=== PATIENT | male | born 1965 | race Caucasian/White ===

== ENCOUNTER → 2018-01-17 13:23 | Outpatient (CLI) | payer MEDICAID, SELFPAY ==
--- NOTE | 2018-01-17 13:25 | CA_ITS ---
PROCEDURE: 2-D M-mode and color Doppler study INDICATIONS FOR THE TEST: Chest pain+ COPD Heart Murmur Tobacco Smokingex Palpitations Fatigue Syncope Edema Hypertension+Diabetes Mellitus Rheumatic Fever SOB BOLIVAR Obesity Hyperlipidemia+ Family History HD Additional History mvp PATIENT INFORMATION HEIGHT: 68 WEIGHT: 148 GENDER: Male B/P: 170/90 2-D/M-MODE INTERPRETATION: 2-D MEASUREMENTS OBSERVED VALUES IN CMS Right Ventricular Dimension (RVDd) 1.9 Interventricular Septum (Thickness)(IVsd) 1.1 Left Ventricular Internal Dimensions(LVIDd) 4.4 Left Ventricular Posterior Wall (Thickness)(LVPWd) 0.9 Aortic Root 2.9 Aortic Cusp Separation 2.1 Left Atrial Dimensions (LAD) 3.8 2D 1. Left atrium is normal size, left ventricle is normal size, there is no concentric left ventricular hypertrophy, visually estimated ejection fraction 55% with no obvious regional wall motion abnormality. 2. The right atrium and right ventricle are normal size and contractility. 3. The aortic valve is minimally thickened and fibrosed. 4. The mitral valve leaflets are minimally thickened, there is no obvious mitral valve prolapse. 5. The tricuspid valve is structurally normal. 6. The pulmonic valve is poorly visualized. 7. No significant pericardial effusion noted. DOPPLER INTERROGATION: Doppler interrogation of the aortic, mitral and tricuspid valvular presence of mild mitral and tricuspid regurgitation, tricuspid regurgitant jet velocity is insufficient for calculation of the right ventricular systolic pressure, diastolic parameters are within normal range. CONCLUSION: 1. Normal left ventricular size, preserved left ventricular systolic function, visually estimated ejection fraction 55% with no obvious regional wall motion abnormality, diastolic parameters are within normal range. 2. Minimally thickened mitral valve leaflets, without any obvious mitral valve prolapse, there is mild mitral regurgitation. 3. No significant pericardial effusion noted.
== END ==
PROVIDERS: Family Provider Internal Medicine; PCP Internal Medicine; Visit Provider Internal Medicine
DX: I34.1 Nonrheumatic mitral (valve) prolapse (principal); R07.9 Chest pain, unspecified
CPT/HCPCS: 93306

== ENCOUNTER → 2018-02-07 08:54 | Outpatient (CLI) | payer MEDICAID, SELFPAY | PROVIDERS: Family Provider Internal Medicine; PCP Internal Medicine; Visit Provider Internal Medicine | DX: R07.89 Other chest pain (principal) | CPT/HCPCS: 93017 ==

== ENCOUNTER → 2019-01-02 15:31 | Outpatient (CLI) | payer MEDICAID, SELFPAY ==
--- NOTE | 2019-01-02 15:45 | XR_ITS ---
XR knee RT 3V HISTORY: ITS.REASON: RT KNEE PAIN ORDERING PHYSICIAN: Abhijit Hoffman PATIENT AGE: 53 years COMPARISON: 04/14/2011 FINDINGS: No fracture or dislocation. No lytic or blastic change. Normal mineralization. There is slight decrease in the joint space medially with minimal osteophyte formation along the proximal tibia medially and minimal osteophyte formation along the posterior patella. 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
== END ==
PROVIDERS: PCP Internal Medicine; Visit Provider Internal Medicine
DX: M25.561 Pain in right knee (principal)
CPT/HCPCS: 73562

== ENCOUNTER → 2020-10-07 13:51 | Outpatient (CLI) | payer OTHER, SELFPAY ==
[2020-10-09 13:21] LABS: Covid-19 Nasal PCR Sendout Lex NOT DETECTED
== END ==
PROVIDERS: PCP Internal Medicine; Visit Provider Internal Medicine
DX: Z03.818 Encounter for observation for suspected exposure to other biological agents ruled out (principal)
CPT/HCPCS: U0004

== ENCOUNTER → 2020-11-03 14:47 | Outpatient (CLI) | payer OTHER, SELFPAY ==
--- NOTE | 2020-11-03 | ECG_ITS ---
APPROVED REPORT Exam: Resting ECG HR:62 bpm ECG Measurements Heart Rate 62 AXES TN 152 P 57 QRSd 100 QRS 27 QT 406 T 7 QTc 412 Conclusion Normal sinus rhythm Normal ECG Electronically signed by : Abhijit Hoffman, 11/03/2020 15:49:34
--- NOTE | 2020-11-03 15:01 | XR_ITS ---
PROCEDURE: XR SHOULDER LT MIN 2V Referring Doctor: Abhijit Hoffman Patient Age:55Y CLINICAL INDICATION: LT SHOULDER PAIN COMPARISON: CR CXR CHEST(2 VIEWS-NOT PORTABLE) from 08/02/2016 FINDINGS: Three views the left shoulder, AP internal and external rotation along with Y-view No acute fracture or dislocation. Glenohumeral joint is intact. Humeral head and neck intact. Scapula intact. Upper left ribs intact AC joint intact with only scant degenerative changes here. Minor inferior spurring at AC joint. Bones well mineralized. With satisfactory relationships IMPRESSION: No acute findings. Left shoulder intact. . Normal glenohumeral joint. Only suggestion minor scant degenerative changes AC joint Dictated by: Jonn Bhatti MD 11/03/2020 15:22 Jonn Bhatti MD in [facility] 11/03/2020 15:22
--- NOTE | 2020-11-03 15:01 | XR_ITS ---
PROCEDURE: XR CHEST 2V Referring Doctor: Abhijit Hoffman Patient Age:55Y CLINICAL HISTORY: CHEST PAIN but current right-sided chest pain. Hyperlipidemia Also note left Shoulder pain 2 years since basketball injury COMPARISON: CR CXR1 CHEST-PORTABLE from 01/08/2016 CR CXR CHEST(2 VIEWS-NOT PORTABLE) from 08/02/2016 FINDINGS: PA and lateral chest performed today and compared to 08/02/2016 CXR The lungs are clear nothing definitely acute. No significant change since 08/02/2016 . the the cardiomediastinal silhouette and pulmonary vascularity are within normal limits. The lungs are clear without infiltrates, suspicious nodules, or pleural effusions. No acute bony abnormalities. IMPRESSION: Stable chest with no acute findings. No significant change since 2015 CXR Dictated by: Jonn Bhatti MD 11/03/2020 15:24 Jonn Bhatti MD in [facility] 11/03/2020 15:24
[2020-11-03 15:29] LABS: Chloride 101 mmol/L (98-107)
[2020-11-03 15:30] LABS: Potassium 4.6 mmoL/L (3.5-5.1); Sodium 141 mmol/L (136-145)
[2020-11-03 15:32] LABS: Alanine Aminotransferase 18 U/L (12-78); Alkaline Phosphatase 74 U/L (38-126); Anion Gap 12.6 mEq/L (5-15); Aspartate Amino Transferase 30 U/L (17-59); Bilirubin,Total 1.2 mg/dl (0.2-1.3); Blood Urea Nitrogen 13 mg/dl (9-20); Carbon Dioxide 32 mmol/L (22.0-30.0); Cholesterol 156 mg/dl (140-200); Estimated Glomerular Filt Rate 87 ml/min (>60); GFR (African American) 105 ML/MIN (>60); Triglycerides 108 mg/dl (30-150); VLDL Cholesterol 22 mg/dL (0-40)
[2020-11-03 15:33] LABS: Albumin Level 4.8 g/dl (3.5-5.0); Albumin/Globulin Ratio 1.3 (1.1-1.8); Calcium 10.2 mg/dl (8.4-10.2); Chol/HDL Ratio 2.8 (1-3.5); Globulin 3.7 g/dL (1.3-3.2); Glucose 149 mg/dl (74-100); HDL Cholesterol 56 mg/dl (40-60); Total Protein,Serum 8.5 g/dl (6.3-8.2)
[2020-11-03 15:48] LABS: Troponin I < 0.01 ng/ml (0.00-0.034)
[2020-11-03 15:50] LABS: Direct LDL Cholesterol 63.98 mg/dL (100-129)
== END ==
PROVIDERS: Visit Provider Internal Medicine
DX: R07.89 Other chest pain (principal); M25.512 Pain in left shoulder; E78.5 Hyperlipidemia, unspecified
CPT/HCPCS: 36415; 71046; 73030; 80053; 80061; 84484; 93005

== ENCOUNTER → 2021-02-15 14:30 | Outpatient (CLI) | payer OTHER, SELFPAY ==
--- NOTE | 2021-02-15 14:33 | CT_ITS ---
PROCEDURE: CT ABDOMEN PELVIS WO CON CLINICAL INDICATION: HEMATURIA COMPARISON: No exams were available for comparison TECHNIQUE: Axial images obtained with sagittal and coronal reformats. All CT scans at the facility use one or more dose reduction, viz: automated exposure control, ma/kV adjustment per patient size (including targeted exams where dose is matched to indication, i.e. head), or iterative reconstruction technique. FINDINGS: LOWER THORAX: No acute finding ABDOMEN & PELVIS: The liver, gallbladder, spleen, adrenal glands, and pancreas have an unremarkable unenhanced appearance. No renal or ureteral calculi. No hydronephrosis. Unremarkable appendix. There is a mild amount of retained colonic feces. No intestinal obstruction or free air. The urinary bladder has an unremarkable unenhanced appearance. There are few scattered small lymph nodes within the abdomen and retroperitoneum. No acute bony findings. IMPRESSION: No acute finding No renal or ureteral calculi or hydronephrosis Dictated by: Javier Ludwig MD 02/15/2021 16:16 Javier Ludwig MD in [facility] 02/15/2021 16:16
== END ==
PROVIDERS: PCP Internal Medicine; Visit Provider Internal Medicine
DX: R31.0 Gross hematuria (principal)
CPT/HCPCS: 74176

== ENCOUNTER → 2021-11-01 15:22 | Outpatient (CLI) | payer OTHER, SELFPAY | PROVIDERS: PCP Internal Medicine; Visit Provider Internal Medicine | DX: U07.1 COVID-19 (principal) | CPT/HCPCS: C9803; U0003; U0005 ==

== ENCOUNTER 2021-11-04 08:01 | Outpatient (CLI) | payer OTHER, SELFPAY ==
[2021-11-04] VITALS (9 sets, daily range): BP systolic 136–178; BP diastolic 76–94; PULSE 42–56; RESP 18; TEMP 36.3; O2SAT 99–100
--- NOTE | 2021-11-04 12:40 | PC.NURSE ---
HAD LONG DISCUSSION WITH PT ABOUT HR. PT SAYS HE DID TAKE A WHOLE MOTOPROLOL THIS AM INSTEAD OF HALF PER DR ABBOTT [employer]. INSTRUCTED TO FOLLOW UP WIT DR ABBOTT AND TO COME TO ER IF DIZZINESS, FAINTING OR CP OCCURS. VERBALIZED UNDERSTANDING.
== END 2021-11-04 12:42 | disposition home or self-care (01) ==
LOC: COVID.OUT 08:01
PROVIDERS: PCP Internal Medicine; Visit Provider Internal Medicine
DX: U07.1 COVID-19 (principal); Z23 Encounter for immunization
CPT/HCPCS: 96365

== ENCOUNTER → 2022-01-25 17:04 | Outpatient (CLI) | payer OTHER, SELFPAY | PROVIDERS: Visit Provider Internal Medicine | DX: K61.0 Anal abscess (principal); B95.8 Unspecified staphylococcus as the cause of diseases classified elsewhere | CPT/HCPCS: 87070; 87077; 87186; 87205 ==

== ENCOUNTER → 2022-02-25 17:20 | Outpatient (CLI) | payer OTHER, SELFPAY ==
[2022-02-25 19:14] LABS: Basophils # 0.1 K/mm3 (0-0.2); Basophils % 1.2 % (0.1-2.0); Eosinophils # 0.6 K/mm3 (0.0-0.4); Eosinophils % 7.8 % (0.1-12.0); Hematocrit 41.7 % (42.0-52.0); Hemoglobin 14.1 g/dL (14.1-18.0); Lymphocytes # 2.8 K/mm3 (0.7-4.5); Lymphocytes % 38.6 % (10-50); Mean Corpuscular HGB Conc 33.8 g/dL (31.8-35.4); Mean Corpuscular Hemoglobin 32.8 pg (27.0-31.2); Mean Corpuscular Volume 97.1 fl (80-94); Monocytes # 0.4 K/mm3 (0.1-1.0); Neutrophils # 3.4 K/mm3 (1.8-7.8); Neutrophils % 47.4 % (37.0-80.0); Platelet Count 234 K/mm3 (142-424); Red Blood Count 4.29 M/mm3 (4.60-6.20); Red Cell Distribution Width 14.3 % (11.5-17.5); White Blood Count 7.1 K/mm3 (4.8-10.8)
[2022-02-25 19:42] LABS: Chloride 105 mmol/L (98-107)
[2022-02-25 19:43] LABS: Potassium 3.9 mmoL/L (3.5-5.1); Sodium 141 mmol/L (136-145)
[2022-02-25 19:45] LABS: Alanine Aminotransferase 31 U/L (12-78); Alkaline Phosphatase 95 U/L (38-126); Anion Gap 11.9 mEq/L (5-15); Aspartate Amino Transferase 36 U/L (17-59); Bilirubin,Total 0.7 mg/dl (0.2-1.3); Blood Urea Nitrogen 9 mg/dl (9-20); Carbon Dioxide 28 mmol/L (22.0-30.0); Estimated Glomerular Filt Rate 99 ml/min (>60); GFR (African American) 120 ML/MIN (>60)
[2022-02-25 19:46] LABS: Albumin Level 4.2 g/dl (3.5-5.0); Albumin/Globulin Ratio 1.4 (1.1-1.8); Calcium 8.7 mg/dl (8.4-10.2); Cholesterol 133 mg/dl (140-200); Globulin 2.9 g/dL (1.3-3.2); Glucose 78 mg/dl (74-100); HDL Cholesterol 44 mg/dl (40-60); Total Protein,Serum 7.1 g/dl (6.3-8.2); Triglycerides 142 mg/dl (30-150); VLDL Cholesterol 28 mg/dL (0-40)
[2022-02-25 19:57] LABS: Direct LDL Cholesterol 71.68 mg/dL (100-129)
[2022-02-25 20:58] LABS: Prostate Specific Ag Screen 0.3 ng/ml (0.0-4.0)
== END ==
PROVIDERS: PCP Internal Medicine; Visit Provider Internal Medicine
DX: R10.13 Epigastric pain (principal); E03.9 Hypothyroidism, unspecified; E78.5 Hyperlipidemia, unspecified; K21.9 Gastro-esophageal reflux disease without esophagitis; F41.9 Anxiety disorder, unspecified; F33.1 Major depressive disorder, recurrent, moderate; J45.909 Unspecified asthma, uncomplicated
CPT/HCPCS: 80053; 80061; 84443; 85025; G0103

== ENCOUNTER → 2022-06-08 13:08 | Outpatient (CLI) | payer OTHER, SELFPAY ==
[2022-06-08 14:28] LABS: Thyroid Stimulating Hormone 4.32 uIU/mL (0.465-4.68)
== END ==
PROVIDERS: PCP Internal Medicine; Visit Provider Internal Medicine
DX: E03.9 Hypothyroidism, unspecified (principal)
CPT/HCPCS: 84443

== ENCOUNTER → 2022-12-30 12:31 | Outpatient (CLI) | payer OTHER, SELFPAY ==
[2022-12-30 13:30] LABS: Basophils # 0.1 K/mm3 (0-0.2); Basophils % 1.3 % (0.1-2.0); Eosinophils # 0.7 K/mm3 (0.0-0.4); Eosinophils % 7.1 % (0.1-12.0); Hematocrit 42.4 % (42.0-52.0); Hemoglobin 13.4 g/dL (14.1-18.0); Lymphocytes # 4.1 K/mm3 (0.7-4.5); Lymphocytes % 42.7 % (10-50); Mean Corpuscular HGB Conc 31.7 g/dL (31.8-35.4); Mean Corpuscular Hemoglobin 31.8 pg (27.0-31.2); Mean Corpuscular Volume 100.3 fl (80-94); Mean Platelet Volume 8.4 fl (7.4-10.4); Monocytes # 0.5 K/mm3 (0.1-1.0); Monocytes % 5.1 % (1.7-9.3); Neutrophils # 4.2 K/mm3 (1.8-7.8); Neutrophils % 43.8 % (37.0-80.0); Platelet Count 267 K/mm3 (142-424); Red Blood Count 4.23 M/mm3 (4.60-6.20); Red Cell Distribution Width 13.3 % (11.5-17.5); White Blood Count 9.6 K/mm3 (4.8-10.8)
[2022-12-30 14:18] LABS: Alanine Aminotransferase 17 U/L (12-78); Albumin Level 4.7 g/dl (3.5-5.0); Albumin/Globulin Ratio 1.4 (1.1-1.8); Alkaline Phosphatase 98 U/L (38-126); Anion Gap 7.4 mEq/L (5-15); Aspartate Amino Transferase 28 U/L (17-59); Bilirubin,Total 0.8 mg/dl (0.2-1.3); Blood Urea Nitrogen 17 mg/dl (9-20); Calcium 9.3 mg/dl (8.4-10.2); Carbon Dioxide 33 mmol/L (22.0-30.0); Chloride 104 mmol/L (98-107); Chol/HDL Ratio 3.5 (1-3.5); Cholesterol 154 mg/dl (140-200); Estimated Glomerular Filt Rate 69 ml/min (>60); GFR (African American) 83 ML/MIN (>60); Globulin 3.4 g/dL (1.3-3.2); Glucose 83 mg/dl (74-100); HDL Cholesterol 44 mg/dl (40-60); Potassium 4.4 mmoL/L (3.5-5.1); Sodium 140 mmol/L (136-145); Total Protein,Serum 8.1 g/dl (6.3-8.2); Triglycerides 218 mg/dl (30-150); VLDL Cholesterol 44 mg/dL (0-40)
[2022-12-30 14:29] LABS: Direct LDL Cholesterol 73.55 mg/dL (100-129)
[2022-12-30 14:49] LABS: Prostate Specific Ag Screen 0.3 ng/ml (0.0-4.0); Thyroid Stimulating Hormone 8.82 uIU/mL (0.465-4.68)
== END ==
PROVIDERS: PCP Internal Medicine; Visit Provider Internal Medicine
DX: I10 Essential (primary) hypertension (principal); E78.5 Hyperlipidemia, unspecified; E03.9 Hypothyroidism, unspecified; F33.1 Major depressive disorder, recurrent, moderate; Z12.5 Encounter for screening for malignant neoplasm of prostate
CPT/HCPCS: 80053; 80061; 84443; 85025; G0103

== ENCOUNTER → 2023-03-08 11:45 | Outpatient (CLI) | payer OTHER, SELFPAY | PROVIDERS: PCP Internal Medicine; Visit Provider Internal Medicine | DX: I10 Essential (primary) hypertension (principal); E03.9 Hypothyroidism, unspecified; E78.5 Hyperlipidemia, unspecified; F41.9 Anxiety disorder, unspecified | CPT/HCPCS: 84443 ==

== ENCOUNTER → 2023-06-21 16:41 | Outpatient (CLI) | payer OTHER, SELFPAY ==
[2023-06-21 18:12] LABS: Thyroid Stimulating Hormone 0.58 uIU/mL (0.465-4.68)
== END ==
PROVIDERS: PCP Internal Medicine; Visit Provider Internal Medicine
DX: F41.9 Anxiety disorder, unspecified (principal); F33.1 Major depressive disorder, recurrent, moderate; I10 Essential (primary) hypertension; E03.9 Hypothyroidism, unspecified; E78.5 Hyperlipidemia, unspecified; K21.9 Gastro-esophageal reflux disease without esophagitis; J45.909 Unspecified asthma, uncomplicated
CPT/HCPCS: 84443

== ENCOUNTER 2024-07-25 11:49 | Outpatient (CLI) | payer OTHER, SELFPAY ==
[2024-07-25 12:48] LABS: Troponin I < 0.01 ng/ml (0.00-0.034)
== END 2024-07-25 23:59 | disposition home or self-care (01) ==
LOC: LAB.DROPOF 11:49
PROVIDERS: PCP Internal Medicine; Visit Provider Internal Medicine
DX: R07.9 Chest pain, unspecified (principal)
CPT/HCPCS: 84484

== ENCOUNTER 2025-02-17 09:30 | Outpatient (CLI) | payer OTHER, SELFPAY ==
[2025-02-17 13:35] LABS: Basophils % 0.6 % (0.1-2.0); Eosinophils # 0.6 K/mm3 (0.0-0.4); Eosinophils % 8.3 % (0.1-12.0); Hematocrit 39.2 % (42.0-52.0); Hemoglobin 13.2 g/dL (14.1-18.0); Lymphocytes # 2.6 K/mm3 (0.7-4.5); Lymphocytes % 36.9 % (10-50); Mean Corpuscular HGB Conc 33.7 g/dL (31.8-35.4); Mean Corpuscular Hemoglobin 31.8 pg (27.0-31.2); Mean Corpuscular Volume 94.5 fl (80-94); Mean Platelet Volume 9.8 fl (7.4-10.4); Monocytes # 0.4 K/mm3 (0.1-1.0); Monocytes % 5.5 % (1.7-9.3); Neutrophils # 3.4 K/mm3 (1.8-7.8); Nucleated Red Blood Cells # 0 10^3/uL; Nucleated Red Blood Cells % 0 %; Platelet Count 232 K/mm3 (142-424); Red Blood Count 4.15 M/mm3 (4.60-6.20); Red Cell Distribution Width 12.7 % (11.5-17.5); Red Cell Distribution Width-SD 43.8 fL; White Blood Count 7.1 K/mm3 (4.8-10.8)
[2025-02-17 14:25] LABS: Alanine Aminotransferase 21 U/L (12-78); Albumin Level 4.6 g/dl (3.5-5.0); Albumin/Globulin Ratio 1.3 (1.1-1.8); Alkaline Phosphatase 104 U/L (38-126); Anion Gap 18.9 mEq/L (5-15); Aspartate Amino Transferase 29 U/L (17-59); Bilirubin,Total 0.6 mg/dl (0.2-1.3); Blood Urea Nitrogen 8 mg/dl (9-20); Calcium 9.4 mg/dl (8.4-10.2); Carbon Dioxide 26 mmol/L (22.0-30.0); Chloride 101 mmol/L (98-107); Chol/HDL Ratio 3.2 (1-3.5); Cholesterol 136 mg/dl (140-200); Estimated Glomerular Filt Rate 76 ml/min (>60); GFR (African American) 92 ML/MIN (>60); Globulin 3.6 g/dL (1.3-3.2); Glucose 122 mg/dl (74-100); HDL Cholesterol 43 mg/dl (40-60); Potassium 3.9 mmoL/L (3.5-5.1); Sodium 142 mmol/L (136-145); Total Protein,Serum 8.2 g/dl (6.3-8.2); Triglycerides 133 mg/dl (30-150); VLDL Cholesterol 27 mg/dL (0-40)
[2025-02-17 14:36] LABS: Direct LDL Cholesterol 62.74 mg/dL (100-129)
[2025-02-17 14:55] LABS: Prostate Specific Ag Screen 0.3 ng/ml (0.0-4.0); Thyroid Stimulating Hormone 7.29 uIU/mL (0.465-4.68)
== END 2025-02-17 23:59 | disposition home or self-care (01) ==
LOC: LAB.DROPOF 02-18 14:49
PROVIDERS: PCP Internal Medicine; Visit Provider Internal Medicine
DX: E78.5 Hyperlipidemia, unspecified (principal); I10 Essential (primary) hypertension; E03.9 Hypothyroidism, unspecified; Z12.5 Encounter for screening for malignant neoplasm of prostate
CPT/HCPCS: 80053; 80061; 84443; 85025; G0103

== ENCOUNTER 2025-06-05 09:35 | Outpatient (CLI) | payer OTHER, SELFPAY ==
[2025-06-05 15:28] LABS: Hematocrit 46.7 % (42.0-52.0); Hemoglobin 15.9 g/dL (14.1-18.0); Immature Granulocytes % 1.1 %; Mean Corpuscular HGB Conc 34.0 g/dL (31.8-35.4); Mean Corpuscular Hemoglobin 33.3 pg (27.0-31.2); Mean Corpuscular Volume 97.7 fl (80-94); Nucleated Red Blood Cells % 0 %; Platelet Count 267 K/mm3 (142-424); Red Blood Count 4.78 M/mm3 (4.60-6.20); Red Cell Distribution Width-SD 45.5 fL; Reticulocyte % (Auto) 1.5 % (0.9-3.2); White Blood Count 9.3 K/mm3 (4.8-10.8)
[2025-06-05 15:56] LABS: Anion Gap 15.4 mEq/L (5-15); Blood Urea Nitrogen 20 mg/dl (9-20); Calcium 9.9 mg/dl (8.4-10.2); Carbon Dioxide 27 mmol/L (22.0-30.0); Chloride 103 mmol/L (98-107); Creatinine,Serum 1.20 mg/dl (0.66-1.25); Estimated Glomerular Filt Rate 61 ml/min (>60); GFR (African American) 74 ML/MIN (>60); Glucose 106 mg/dl (74-100); Potassium 4.4 mmoL/L (3.5-5.1); Sodium 141 mmol/L (136-145)
[2025-06-05 16:45] LABS: Vitamin B12 247 pg/mL (239-931)
[2025-06-05 19:23] LABS: Thyroid Stimulating Hormone 2.89 uIU/mL (0.465-4.68)
[2025-06-05 19:24] LABS: Hemoglobin A1C 6.1 % (4.0-6.0)
== END 2025-06-05 23:59 | disposition home or self-care (01) ==
LOC: LAB.DROPOF 06-06 13:49
PROVIDERS: PCP Internal Medicine; Visit Provider Internal Medicine
DX: D64.9 Anemia, unspecified (principal); I10 Essential (primary) hypertension; E03.9 Hypothyroidism, unspecified; R73.9 Hyperglycemia, unspecified
CPT/HCPCS: 80048; 82607; 83036; 84443; 85025; 85044

== ENCOUNTER 2025-07-14 11:11 | Outpatient (CLI) | payer OTHER, SELFPAY ==
--- NOTE | 2025-07-14 11:13 | XR_ITS ---
FINAL REPORT CLINICAL HISTORY: Hit with ball in right lower leg COMPARISON: None FINDINGS: AP and lateral views of the right tibia and fibula were obtained. There is no acute fracture of the right tibia or fibula. The knee and ankle appear intact. The soft tissues are normal. IMPRESSION: No acute osseous abnormality of the right tibia or fibula. Reviewed, Interpreted and Dictated by Jenifer Granger MD Transcribed by Caroline Hess Authenticated and [facility]
--- NOTE | 2025-07-14 11:13 | XR_ITS ---
FINAL REPORT CLINICAL HISTORY: Hit with a ball in right lower leg and right ankle COMPARISON: None FINDINGS: AP, oblique, and lateral views of the right ankle were obtained. There is no fracture or dislocation. There is degenerative joint disease. No acute soft tissue abnormality. IMPRESSION: Degenerative joint disease without acute osseous abnormality of the right ankle. Reviewed, Interpreted and Dictated by Jenifer Granger MD Transcribed by Caroline Hess Authenticated and [facility]
== END 2025-07-14 23:59 | disposition home or self-care (01) ==
LOC: RAD 11:12
PROVIDERS: PCP Internal Medicine; Visit Provider Internal Medicine
DX: M19.071 Primary osteoarthritis, right ankle and foot (principal); M25.471 Effusion, right ankle; M79.661 Pain in right lower leg; M79.89 Other specified soft tissue disorders; W21.00XA Struck by hit or thrown ball, unspecified type, initial encounter
CPT/HCPCS: 73590; 73610